=== PATIENT | female | born 1970 | race Caucasian/White ===

== ENCOUNTER → 2020-12-18 | Outpatient (CLI) | payer OTHER ==
[~2020-12-18] MED LIST: MECLIZINE HCL25 MG PO
[2020-12-20 08:14] LABS: ESTRADIOL 24.6 pg/mL (.); FSH, SERUM 7.8 mIU/mL (.); PROGESTERONE 0.4 ng/mL (.)
[2020-12-23 08:11] LABS: TESTOSTERONE, SERUM <3 ng/dL (4-50)
[2020-12-29 20:08] LABS: ESTROGENS, TOTAL 140 pg/mL (.)
== END ==
LOC: LAB 17:29
PROVIDERS: Nurse Practitioner Family
DX: E03.8 Other specified hypothyroidism (principal); N95.1 Menopausal and female climacteric states
CPT/HCPCS: 82670; 82672; 83001; 84144; 84402; 84403; 84439; 84443

== ENCOUNTER 2021-01-19 14:01 | Emergency (ER) | payer OTHER ==
[2021-01-19 17:53] LABS: HEMOGLOBIN 14.9 gm/dl (12.3-15.3); RED BLOOD COUNT 4.86 M/UL (4.00-5.10)
[2021-01-19 18:20] LABS: BUN/CREATININE RATIO 13 (0-10)
[2021-01-19] MEDS ORDERED: MECLIZINE HCL25 MG PO (19:46)
== END 2021-01-19 19:58 | disposition home or self-care (01) ==
LOC: ER1 14:01
PROVIDERS: Physician Assistant
DX: R42 Dizziness and giddiness (principal); R11.2 Nausea with vomiting, unspecified; R51.9 Headache, unspecified; Z88.0 Allergy status to penicillin
CPT/HCPCS: 70450; 71045; 80053; 80307; 81001; 82550; 82553; 83874; 84439; 84443; 84484; 84703; 85025; 93005; 96374; 96375; 99284; J1200; J1885; J2405; J2765

== ENCOUNTER → 2021-05-15 | Day surgery (SDC) | payer OTHER ==
[~2021-05-15] MED LIST changes: +AMBIEN10 MG PO; +ARMOUR THYROID60 MG PO; +ARNUITY ELLIPT50 MCG INH; +BIOTIN1 MG PO; +DAILY VITAMIN1 EAC2 PO; +HYDROCODON-ACE1 EAC2 PO; +MECLIZINE HCL25 M1 PO; +NAPROSYN EC 50500 MG PO; +OMEPRAZOLE20 MG PO; +PROBIOTIC1 EAC3 PO; +VALIUM 10 MG TA10 MG PO; +ZOFRAN 4 MG TAB4 MG PO; +ZOLOFT25 MG PO
[2021-05-15 11:46] LABS: HEMOGLOBIN 15.6 gm/dl (12.3-15.3); RED BLOOD COUNT 4.89 M/UL (4.00-5.10); WHITE BLOOD COUNT 5.9 K/UL (4.5-11.0)
== END | disposition home or self-care (01) ==
LOC: OR 10:54
PROVIDERS: Obstetrics & Gynecology
DX: N92.1 Excessive and frequent menstruation with irregular cycle (principal); Z88.0 Allergy status to penicillin; F41.9 Anxiety disorder, unspecified; E03.9 Hypothyroidism, unspecified; Z98.51 Tubal ligation status; Z20.822 Contact with and (suspected) exposure to COVID-19
CPT/HCPCS: 81001; 85025; 93005; J1100; J1885; J2001; J2250; J2405; J2704; J2795; J3010; J7030; J7120